=== PATIENT | male | born 1995 | race Caucasian/White ===

== ENCOUNTER 2016-08-16 17:54 | Emergency (ER) | payer OTHER ==
--- NOTE | 2016-08-16 18:17 | EDPHY ---
HPI/HX/ROS/PE/MDM Narrative: CHIEF COMPLAINT: Headache, cognitive deficits HISTORY OF PRESENT ILLNESS: This patient is a 20 year old male who presents to the Emergency Department complaining of persistent headache and worsening cognitive deficits since being diagnosed with a concussion on 08/05 by [facility]. On 08/05, he was hit in his right temporal scalp with a soccer ball; no LOC, he was not knocked to the ground. Since then, he has experienced a persistent headache with associated neck pain, somewhat alleviated with Tylenol and Ibuprofen and exacerbated when looking at TV or computer screens. He also reports worsening difficulty concentrating and has been more emotional than normal; mom reports that he has been crying frequently since the event. He describes one episode of vomiting on Tuesday after smoking marijuana but denies nausea since that time. He also reports intermittent paresthesias bilaterally to both forearms with weakness. He denies difficulty speaking or walking. No vision changes. He denies any pertinent medical history. REVIEW OF SYSTEMS: Aside from elements discussed in the HPI, a comprehensive 10-point review of systems was reviewed and is negative apart from subjective, intermittent blue lips per mother. No shortness of breath or chest pain. No history of heart murmurs or syncope. He does state that he feels anxious and depressed but denies intent to harm himself or others. Denies hallucinations or paranoid thoughts. PAST MEDICAL HISTORY: Closed head injury, concussion on 08/05. Taking clindamycin for sinusitis. SOCIAL HISTORY: [employer] student, from [place]. Mother at bedside. Smokes tobacco and marijuana regularly. Denies illicit drug use. Drinks alcohol socially. PHYSICAL EXAM: VITAL SIGNS: Reviewed by me GENERAL: Well-developed, well-nourished, resting comfortably in no respiratory distress. HEENT: Atraumatic. Eyes: No icterus, no injection. Mouth: moist mucous membranes. No erythema or lesions. Neck: supple with no adenopathy. LUNGS: Clear to auscultation bilaterally, no wheezes, rhonchi or rales. CARDIAC: Regular rate and rhythm, no rubs, murmurs or gallops. ABDOMEN: Soft, nontender, nondistended, bowel sounds normal. BACK: No CVA tenderness. EXTREMITIES: No trauma. No edema. Range of motion is normal throughout. NEURO: Alert and oriented, grossly nonfocal. SKIN: Warm and dry, no rash. PSYCHIATRIC: Normal mentation, no agitation. ED Course: Normally healthy 20-year-old male presents with persistent post-concussive complaints of moderate headache, difficulty concentrating, and one episode of nausea since resolved. Upon presentation, he is alert and resting comfortably. There are no neurological deficits on exam. I discussed with the patient my recommendation that we proceed with CT of the head given the persistence of his cognitive deficits and CT of the cervical spine given residual neck pain. Will also proceed with EKG given family's concern of possible circulation changes. 1916: CT of the head and neck are negative per Dr. Davila, radiology. I discussed these results with the patient. He will be discharged home in good condition with post-concussion syndrome precautions and referral to Dr. Teresa for follow-up. He understands customary return precautions. EKG INTERPRETATION: The 12 lead EKG was interpreted by myself: Sinus bradycardia rate 48; early repolarization pattern. See hard copy and/or "tracemaster" electronic copy for interpretation. MDM: Differential diagnosis for the patient's symptom complex was considered including but not limited to concussion, head injury, contusion, fracture, skull fracture, intraparenchymal contusion, subarachnoid, subdural and epidural hematoma, electrolyte abnormalities. - Data Points Imaging: Discussed imaging studies w/ scallop cutter Radiologist General Time Seen by Provider: 08/16/16 18:12 Initial Vital Signs: Initial Vital Signs Temperature (C) 36.7 C 08/16/16 17:55 Heart Rate 62 08/16/16 17:55 Respiratory Rate 16 08/16/16 17:55 Blood Pressure 111/57 L 08/16/16 17:55 O2 Sat (%) 96 08/16/16 17:55 O2 Delivery Mode Room Air Allergies/Adverse Reactions: No Known Allergies Allergy (Unverified 08/16/16 17:58) Home Medications: Medication Instructions Recorded Clindamycin 150 mg PO 08/16/16 Departure - Departure Disposition: Home, Routine, Self-Care Clinical Impression: Post concussion syndrome Condition: Good Instructions: Post Concussion Syndrome (ED) Additional Instructions: 1. It is important that you rest until your symptoms have entirely resolved. This includes the following: - Avoid spending a long time concentrating or thinking as this will worsen your symptoms. You may need to work out a different plan for studying and/or taking your final to make sure that you are able to rest your mind until your symptoms improve. - Do not drink alcohol or smoke marijuana while you continue to have symptoms of post-concussion syndrome. - Avoid spending time looking at computer screens, phone screens, or TV. This can worsen your headache and concentration difficulties. 2. Alternate 600mg Ibuprofen and 650mg Tylenol every 4-6 hours as needed for headche. 3. Follow-up with a concussion project specialist if your symptoms do not improve in the next 1-2 weeks. If you remain in [place], we have referred you to a local specialist, Dr. Teresa. 4. Return to the Emergency Department with severe headache, confusion, difficulty walking or speaking, changes to your vision, dizziness, or for other serious concerns. Referrals: Lucinda Teresa MD [Medical Doctor] - As per Instructions Stand Alone Forms: School Excuse Report Scribed for: Leanna Ortiz Report Scribed by: Aure Montenegro Date of Report: 08/16/16 Time of Report: 18:17 Physician Review and Approval Statement: Portions of this note were transcribed by a medical billing specialist. I personally performed a history, physical exam, medical decision making, and confirmed accuracy of information the transcribed note.
--- NOTE | 2016-08-16 19:41 | CPEKG ---
Heart Rate: 48 RR Interval: 1250 P-R Interval: 152 QRSD Interval: 94 QT Interval: 416 QTC Interval: 372 P [place]: 72 QRS [place]: 59 T Wave [place]: 56 EKG Severity - OTHERWISE NORMAL ECG - EKG Impression: SINUS BRADYCARDIA EKG Impression: ST ELEV, PROBABLE NORMAL EARLY REPOL PATTERN Electronically Signed By: Shmuel Hughes 19-Aug-2016 12:27:34
[2016-08-16 20:04] VITALS: BP 112/67; PULSE 58; RESP 18; TEMP 98.2; O2SAT 97
== END 2016-08-16 20:04 | disposition home or self-care (01) ==
DX: G44.309 Post-traumatic headache, unspecified, not intractable (principal); F07.81 Postconcussional syndrome; F17.200 Nicotine dependence, unspecified, uncomplicated